=== PATIENT | female | born 1950 | race Asian ===

== ENCOUNTER 2024-04-16 12:12 | Emergency (ER) | payer MEDICARE, OTHER, SELFPAY ==
[2024-04-16 12:20] VITALS: BP 171/79; PULSE 70; RESP 20; TEMP 36.6; BMI 29.2
[2024-04-16 13:01] VITALS: BP 157/77
--- NOTE | 2024-04-16 13:23 | DI.RAD.S_ITS ---
PROCEDURE: XR KNEE RT 1TO2V INDICATIONS: knee pain TECHNIQUE: 2 views of the knee were acquired. COMPARISON: None. FINDINGS: Bones: No fractures or dislocations. Degenerative arthritis, severe in the medial compartment. No suspicious bony lesions. Soft tissues: No joint effusion. No suspicious soft tissue calcifications. IMPRESSION: Degenerative arthritis, severe in the medial compartment. No acute bony abnormality. Dictated by: Seun Calix M.D. on 04/16/2024 at 13:50 Approved by: Seun Calix M.D. on 04/16/2024 at 13:50
--- NOTE | 2024-04-16 13:23 | DI.RAD.S_ITS ---
PROCEDURE: XR KNEE LT 1TO2V INDICATIONS: knee pain TECHNIQUE: 2 views of the knee were acquired. COMPARISON: [facility], CR, XR KNEE RT 1TO2V, 04/16/2024, 13:22. FINDINGS: Bones: No fractures or dislocations. No suspicious bony lesions. Degenerative arthritis, most notably in the medial compartment. Soft tissues: No joint effusion. No suspicious soft tissue calcifications. IMPRESSION: No acute bony abnormality. No significant knee joint effusion. Degenerative arthritis. Dictated by: Seun Calix M.D. on 04/16/2024 at 13:48 Approved by: Seun Calix M.D. on 04/16/2024 at 13:49
[2024-04-16 13:40] VITALS: PULSE 62; O2SAT 100
[2024-04-16 14:07] LABS: Add Manual Diff / Slide Review NO; Basophils Absolute Auto 100 /uL (0-100); Basophils Percent Auto 1.1 % (0-2); Eosinophils Absolute Auto 100 /uL (0-450); Eosinophils Percent Auto 1.2 % (2-4); Hematocrit 25.8 % (36-46); Hemoglobin 8.8 g/dL (12.0-16.0); Lymphocytes Absolute Auto 1100 /uL (1100-4500); Lymphocytes Percent Auto 21.4 % (25-40); Mean Corpuscular Hemoglobin 29.2 PG (26-34); Mean Corpuscular Volume 85.8 fL (80-100); Monocytes Absolute Auto 200 /uL (0-900); Monocytes Percent Auto 4.5 % (3-14); Neutrophils Absolute Auto 3600 /uL (1500-7000); Neutrophils Percent Auto 71.8 % (50-75); Platelet Count 311 X10^3/uL (150-400); Red Blood Cell Count 3.01 X10^6/uL (4.0-5.2); Red Cell Distribution Width 18.1 % (11.6-14.8); White Blood Cell Count 5.1 X10^3/uL (4.5-11.0)
[2024-04-16 14:17] LABS: Alanine Aminotransferase 17 IU/L (<35); Albumin 4.2 g/dL (3.5-5.0); Albumin Globulin Ratio 1.3 (1.0-2.8); Alkaline Phosphatase 78 U/L (38-126); Aspartate Aminotransferase 30 IU/L (14-36); BUN Creatinine Ratio 14.7 (6-22); Bilirubin Total 1.5 mg/dL (0.2-1.3); Blood Urea Nitrogen 16 mg/dL (7-17); Calcium 8.4 mg/dL (8.4-10.2); Carbon Dioxide 26 mmol/L (22-32); Chloride 106 mmol/L (98-107); Creatine Kinase 111 U/L (30-135); Estimated Glomerular Filt Rate 54 mL/min (>60); Globulin 3.2 g/dL (1.7-4.1); Glucose 101 mg/dL (80-110); HEMOLYSIS < 15 (0-50); Potassium 3.3 mmol/L (3.4-5.1); Sodium 139 mmol/L (137-145); Total Protein 7.4 g/dL (6.3-8.2)
--- NOTE | 2024-04-16 15:20 | ED_ITS ---
HPI - Extremity Problem General Chief complaint: Extremity Problem,Nontraumatic Stated complaint: Fall, leg weakness Time Seen by Provider: 04/16/24 13:01 Mode of arrival: Wheelchair History of Present Illness HPI Narrative: 73-year-old filipina woman who does not typically see physicians and is typically quite active was working out in the [employer] on Friday doing significantly more physical labor including using a pick ax and shovel than she typically does. Yesterday she was a bit sore but this morning she was so sore that she is having trouble standing up and almost fell down because her knees were hurting. She had not hurt herself. There has been no fevers or chills. Brought in by family for further evaluation. Review of Systems Review of Systems Narrative: Pertinent positive and negative findings as per HPI Patient History Social History Smoking Status: Never smoker Smoking Status: Never smoker Exam Initial Vital Signs Initial Vital Signs: Vital Signs Temperature 98 F 04/16/24 12:20 Pulse Rate 70 04/16/24 12:20 Respiratory Rate 20 04/16/24 12:20 Blood Pressure 171/79 H 04/16/24 12:20 General: Older appearing but in no acute distress. Well-nourished well- developed HEENT: Moist mucous membranes, normal sclera with reactive pupils, Respiratory: Lungs are clear to auscultation, no wheezing no rales no rhonchi. Full and symmetrical air movement Cardiac: Regular rate and rhythm no murmurs no bruits Abdomen: Soft, nontender, good bowel tones, no flank pain Skin: Warm and dry, no rashes Neurologic: Grossly neurologically intact with no obvious asymmetries or abnormalities Extremities: No trauma, well perfused. No tenderness with hip internal or external rotation bilaterally. No tenderness along the lower lumbar spine. Both knees are mildly tender to palpation without significant effusion. Neurovascularly intact distally. Some minor muscle tenderness in the hamstring, worse on the left than the right and the gastroc worse on the left the right. Psych: Cooperative, appropriate insight and affect Course Orders Ordered: ED Orders 04/16/24 13:23 XR knee LT 1to2V Stat XR knee RT 1to2V Stat 04/16/24 13:55 CK [Creatine Kinase] Stat Complete Blood Count AUTO DIFF Stat Comprehensive Metabolic Panel Stat Vital Signs Vital signs: Vital Signs - 8 hr 04/16/24 12:20 Temperature 98 F Pulse Rate 70 Respiratory Rate 20 Blood Pressure 171/79 H MDM - Extremity (Nontraumatic) Lab Data 04/16/24 13:55 04/16/24 13:55 Labs: Lab Results 04/16/24 Range/Units 13:55 WBC 5.1 (4.5-11.0) X10^3/uL RBC 3.01 L (4.0-5.2) X10^6/uL Hgb 8.8 L (12.0-16.0) g/dL Hct 25.8 L (36-46) % MCV 85.8 (80-100) fL MCH 29.2 (26-34) PG MCHC 34.0 (30-36) % RDW 18.1 H (11.6-14.8) % Plt Count 311 (150-400) X10^3/uL Neut % (Auto) 71.8 (50-75) % Lymph % (Auto) 21.4 L (25-40) % Stearns % (Auto) 4.5 (3-14) % Eos % (Auto) 1.2 L (2-4) % Baso % (Auto) 1.1 (0-2) % Neut # (Auto) 3600 (5938-4457) /uL Lymph # (Auto) 1100 (2115-0291) /uL Stearns # (Auto) 200 (0-900) /uL Eos # (Auto) 100 (0-450) /uL Baso # (Auto) 100 (0-100) /uL Sodium 139 (137-145) mmol/L Potassium 3.3 L (3.4-5.1) mmol/L Chloride 106 (98-107) mmol/L Carbon Dioxide 26 (22-32) mmol/L BUN 16 (7-17) mg/dL Creatinine 1.09 H (0.52-1.04) mg/dL Estimated GFR 54 L (>60) mL/min BUN/Creatinine Ratio 14.7 (6-22) Glucose 101 (80-110) mg/dL Calcium 8.4 (8.4-10.2) mg/dL Total Bilirubin 1.5 H (0.2-1.3) mg/dL AST 30 (14-36) IU/L ALT 17 (<35) IU/L Alkaline Phosphatase 78 (38-126) U/L Total Creatine Kinase 111 (30-135) U/L Total Protein 7.4 (6.3-8.2) g/dL Albumin 4.2 (3.5-5.0) g/dL Globulin 3.2 (1.7-4.1) g/dL Albumin/Globulin Ratio 1.3 (1.0-2.8) MDM Narrative Medical decision making narrative: CC: Severe leg pain enough that she is worried she is going to fall Complicating co-morbidities: Does not see physicians is otherwise healthy, takes no medications Data collected from: patient, daughter, granddaughter Differential considered: Rhabdomyolysis, tendon injury, acute overuse muscle pain Exam documented above, pertinent findings include: Exam is fairly benign. She does not have obvious bony or tendon injuries. No muscle tears at areas of concern. She is otherwise able to walk it is slightly uncomfortable Lab Test results independently reviewed as above. Pertinent findings: CBC shows mild anemia at 8.8 and 25.8 with an MCV at 85.8 Chemistries show creatinine minimally elevated at 1.09, potassium slightly low at 3.3, remainder of chemistries are unremarkable Creatinine kinase is not elevated to suggest rhabdomyolysis Imaging studies independently reviewed: X-rays of knees bilaterally do show osteoarthritis with no other acute injuries Treatments: Oral ibuprofen and Tylenol Discussion: Otherwise healthy 73-year-old woman with musculoskeletal pain after an excessive day of working in the [employer]. There was no evidence of rhabdomyolysis, acute ligamentous injury, muscle tear, DVT, significant effusions. X-rays do suggest she has bilateral osteoarthritis in the legs consistent with her complaints. Incidentally appreciated to have microcytic anemia that is otherwise asymptomatic. Recommended ibuprofen and Tylenol for pain control as needed. Gentle stretching and perhaps pacing herself while working in the [employer] a bit more appropriately. We did discuss the chronic anemia and I have suggested following up with primary care physician to figure out why she does have this mild chronic anemia There was no indication for additional imaging or hospitalization, she is safe for discharge Discharge Plan Departure Patient Disposition: Home Clinical Impression: Musculoskeletal back pain, Chronic anemia Osteoarthritis of both knees Qualifiers: Osteoarthritis type: primary Qualified Code(s): M17.0 - Bilateral primary osteoarthritis of knee Instructions: Anemia, DI for Osteoarthritis, DI for Musculoskeletal Pain Activity Restrictions/Additional Instructions: Thank you for coming in today Your workup is actually very reassuring. There was no sign of significant muscle injury joint injury or tendon problems I think you work your muscles to hard which is why they are so sore today. You do have arthritis in both of your knees based on your x-rays. There are no new findings and you did not break anything Incidentally, you have a mild anemia. I do not have an explanation for this. This is something that you should follow up with a primary care physician to figure out why you are either losing small amounts of blood consistently or not making enough in the 1st place. Using 400 mg of ibuprofen (2 [id number] pills) and 1 Tylenol every 6 hours can be very helpful in controlling pain. Gentle massage, gentle walking, a hot shower or bath can all be helpful with pain control as well If you find that you are getting worse or develop any new symptoms, please feel free to return to the emergency department for further evaluation. Referrals: [facility] [Primary Care Provider] - Stand Alone Forms: Patient Portal/API/Survey
--- NOTE | 2024-04-16 15:29 | PC.NURSE ---
The patient was given an IV by another nurse
[2024-04-16] MEDS: ACETAMINOPHEN 325 MG TABLET PO (15:32)
[2024-04-16] MEDS: IBUPROFEN 400 MG TABLET PO (15:32)
== END 2024-04-16 15:52 | disposition home or self-care (01) ==
PROVIDERS: Emergency Provider Emergency Medicine
DX: M17.0 Bilateral primary osteoarthritis of knee (principal); M54.9 Dorsalgia, unspecified; D50.9 Iron deficiency anemia, unspecified
CPT/HCPCS: 36415; 73560; 80053; 82550; 85025; 99283